=== PATIENT | male | born 1950 | race Caucasian/White ===

== ENCOUNTER 2021-04-01 11:45 | Outpatient (CLI) | payer MEDICARE, MEDICAID ==
[2021-04-01 20:47] LABS: SARS-CoV-2 PCR by NAA Not Detected (NotDetected)
== END 2021-04-01 11:46 | disposition home or self-care (01) ==
LOC: CSHLAB 11:45
PROVIDERS: ATTEND Internal Medicine Pulmonary Disease
DX: Z20.822 Contact with and (suspected) exposure to COVID-19 (principal); R06.02 Shortness of breath
CPT/HCPCS: 87635; U0003; U0005

== ENCOUNTER 2021-04-06 10:24 | Outpatient (CLI) | payer MEDICARE, MEDICAID | END 2021-04-06 10:25 | disposition home or self-care (01) | LOC: CSHCP 10:24 | PROVIDERS: ATTEND Internal Medicine Pulmonary Disease | DX: R06.02 Shortness of breath (principal); R94.2 Abnormal results of pulmonary function studies | CPT/HCPCS: 94060; 94726; 94729; 94760 ==